=== PATIENT | female | born 1975 | race Caucasian/White ===

== ENCOUNTER 2018-10-25 08:03 | Inpatient (IN) | payer BC ==
[2018-10-25] MEDS ORDERED: OXYTOCIN 30 UNITS/LR 500 ML IV ×2 (09:30)
[2018-10-25] MEDS ORDERED: MISOPROSTOL 200 MCG TAB PR (09:30)
[2018-10-25] MEDS ORDERED: LIDOCAINE 1% (MPF) 30 ML INJ INJ (09:30)
[2018-10-25] MEDS ORDERED: CARBOPROST 250 MCG INJ IM (09:30)
[2018-10-25] MEDS ORDERED: IBUPROFEN 600 MG TAB PO (09:30)
[2018-10-25] MEDS ORDERED: METHYLERGONOVINE 0.2 MG INJ IM (09:30)
[2018-10-25 09:35] LABS: ADD MAN DIFF? NO
[2018-10-25 09:44] LABS: BASOPHIL # 0.1 10^3/ul (0.0-0.1); BASOPHILS % 0.4 % (0.0-2.0); EOSINOPHILS # 0.4 10^3/ul (0.0-0.5); EOSINOPHILS % 3.2 % (0.0-7.0); HEMOGLOBIN 11.9 g/dl (12.0-16.0); LYMPHOCYTES % 17.6 % (15.0-51.0); MEAN CORPUSCULAR HEMOGLOBIN 30.4 pg (29.0-33.0); MEAN CORPUSCULAR HGB CONC 33.1 g/dl (32.0-37.0); MEAN CORPUSCULAR VOLUME 91.8 fl (82.0-101.0); MEAN PLATELET VOLUME 11.9 fl (7.4-10.4); MONOCYTE # 0.7 10^3/ul (0.3-0.9); MONOCYTES % 6.5 % (0.0-11.0); NEUTROPHIL # 7.9 10^3/ul (1.6-7.5); NEUTROPHILS % 70.6 % (39.0-77.0); PLATELET COUNT 243 10^3/UL (140-415); RED BLOOD COUNT 3.92 10^6/ul (4.20-5.40); RED CELL DISTRIBUTION WIDTH 13.5 % (11.5-14.5)
[2018-10-25 09:44] LABS: WHITE BLOOD COUNT 11.2 10^3/ul (4.8-10.8)
[2018-10-25 10:25] LABS: HEPATITIS B SURFACE ANTIGEN NEGATIVE (NEGATIVE)
[2018-10-25 10:54] LABS: INR 0.82; PROTIME 11.4 Sec (11.9-14.9); PT RATIO 0.9
[2018-10-25 10:55] LABS: PARTIAL THROMBOPLASTIN TIME 25.8 Sec (23.0-35.0)
[2018-10-25] MEDS: LACTATED RINGER'S 1,000 ML IV ×3 (11:41→22:34)
[2018-10-25] MEDS: MISOPROSTOL 50 MCG CAPSULE PO ×3 (13:00→21:00)
[2018-10-25] MEDS: MAGNESIUM SULFATE 4 GM/100 ML 100 ML IV (19:30)
[2018-10-25] MEDS: MAGNESIUM SULFATE 20 GM/500 ML 500 ML IV (20:01)
[2018-10-25 20:23] LABS: RAPID PLASMA REAGIN NONREACTIVE (NR)
[2018-10-25 20:29] LABS: ADD MAN DIFF? NO
[2018-10-25 20:34] LABS: BASOPHIL # 0.1 10^3/ul (0.0-0.1); BASOPHILS % 0.6 % (0.0-2.0); EOSINOPHILS # 0.4 10^3/ul (0.0-0.5); EOSINOPHILS % 3.2 % (0.0-7.0); HEMATOCRIT 36.7 % (37.0-47.0); LYMPHOCYTES # 1.9 10^3/ul (0.8-2.9); LYMPHOCYTES % 17.9 % (15.0-51.0); MEAN CORPUSCULAR HGB CONC 32.7 g/dl (32.0-37.0); MEAN CORPUSCULAR VOLUME 91.8 fl (82.0-101.0); MEAN PLATELET VOLUME 11.9 fl (7.4-10.4); MONOCYTE # 0.6 10^3/ul (0.3-0.9); MONOCYTES % 5.8 % (0.0-11.0); NEUTROPHIL # 7.7 10^3/ul (1.6-7.5); NEUTROPHILS % 70.8 % (39.0-77.0); PLATELET COUNT 250 10^3/UL (140-415); RED CELL DISTRIBUTION WIDTH 13.9 % (11.5-14.5)
[2018-10-25 20:34] LABS: WHITE BLOOD COUNT 10.8 10^3/ul (4.8-10.8)
[2018-10-25 20:50] LABS: ALANINE AMINOTRANSFERASE 22 IU/L (13-69); ALBUMIN 3.4 g/dl (3.3-4.9); ALBUMIN/GLOBULIN RATIO 1.06; ALKALINE PHOSPHATASE 176 IU/L (42-121); ANION GAP 10 (5-13); ASPARTATE AMINO TRANSFERASE 20 IU/L (15-46); BILIRUBIN,INDIRECT 0.6 mg/dl (0-1.1); BILIRUBIN,TOTAL 0.6 mg/dl (0.2-1.3); BLOOD UREA NITROGEN 5 mg/dl (7-20); CALCIUM 9.5 mg/dl (8.4-10.2); CARBON DIOXIDE 22 mmol/L (21-31); CHLORIDE 101 mmol/L (97-110); CREATININE 0.42 mg/dl (0.44-1.00); Estimated GFR > 60 mL/min (>60); GLUCOSE 94 mg/dl (70-220); POTASSIUM 3.9 mmol/L (3.5-5.1); SODIUM 133 mmol/L (135-144); TOTAL PROTEIN 6.6 g/dl (6.1-8.1); URIC ACID 4.3 mg/dl (3.1-7.9)
[2018-10-25 20:53] LABS: INR 0.89; PROTIME 12.2 Sec (11.9-14.9)
[2018-10-25 20:54] LABS: PARTIAL THROMBOPLASTIN TIME 25.2 Sec (23.0-35.0)
[2018-10-25] MEDS: OXYTOCIN 30 UNITS/LR 500 ML IV (21:05)
[2018-10-25 21:44] LABS: ADD UMIC YES; UR ASCORBIC ACID NEGATIVE (NEGATIVE); UR BILIRUBIN (Dip) NEGATIVE (NEGATIVE); UR BLOOD (Dip) 1+ mg/dL (NEGATIVE); UR CLARITY CLEAR (CLEAR); UR COLOR YELLOW (YELLOW); UR GLUCOSE (Dip) NEGATIVE (NEGATIVE); UR KETONES (Dip) TRACE mg/dL (NEGATIVE); UR LEUKOCYTE ESTERASE (Dip) NEGATIVE Leu/ul (NEGATIVE); UR NITRITE (Dip) NEGATIVE (NEGATIVE); UR RBC 0 /HPF (0-5); UR SQUAMOUS EPITHELIAL CELL FEW /HPF (FEW); UR TOTAL PROTEIN (Dip) NEGATIVE (NEGATIVE); UR UROBILINOGEN (Dip) NEGATIVE (NEGATIVE); UR WBC 5 /HPF (0-5)
[2018-10-25] MEDS ORDERED: NALOXONE (0.4 MG/ML) INJ IV (23:00)
[2018-10-25] MEDS ORDERED: LABETALOL HCL 20MG INJ (23:38)
[2018-10-25] MEDS: LABETALOL HCL 20MG INJ IV (23:50)
[2018-10-25] MEDS: FENTAnyl 2MCG/ML-ROPIV 0.2% 100 ML BAG EPI (23:55)
[2018-10-26] MEDS ORDERED: LABETALOL HCL 20MG INJ IV ×2
[2018-10-26] MEDS ORDERED: hydrALAzine 20 MG INJ IV
[2018-10-26 01:14] LABS: MAGNESIUM 3.8 mg/dl (1.7-2.5)
[2018-10-26] MEDS: MAGNESIUM SULFATE 20 GM/500 ML 500 ML IV ×2 (04:26→15:07)
[2018-10-26] MEDS: LACTATED RINGER'S 1,000 ML IV (04:27)
[2018-10-26] MEDS: FENTAnyl 2MCG/ML-ROPIV 0.2% 100 ML BAG EPI (04:27)
[2018-10-26] MEDS: OXYTOCIN 30 UNITS/LR 500 ML IV (09:04)
[2018-10-26] MEDS: IBUPROFEN 600 MG TAB PO ×3 (12:00→23:52)
[2018-10-26] MEDS ORDERED: MISOPROSTOL 200 MCG TAB PR (12:00)
[2018-10-26] MEDS ORDERED: DIBUCAINE 1% 30 GM OINT TOP (12:00)
[2018-10-26] MEDS ORDERED: OXYTOCIN 30 UNITS/LR 500 ML IV (12:00)
[2018-10-26] MEDS ORDERED: HYDROCODONE/APAP (5/325) TAB PO (12:00)
[2018-10-26] MEDS ORDERED: ACETAMINOPHEN 325 MG TAB PO (12:00)
[2018-10-26] MEDS ORDERED: CARBOPROST 250 MCG INJ IM (12:00)
[2018-10-26 12:07] LABS: MAGNESIUM 4.1 mg/dl (1.7-2.5)
[2018-10-26] MEDS: WITCH HAZEL/GLYCERIN PAD PR (13:05)
[2018-10-26] MEDS: BENZOCAINE 20% 56 ML SPRAY TOP (13:05)
[2018-10-26] MEDS: LACTATED RINGER'S 1,000 ML IV* (15:56)
[2018-10-26 19:23] LABS: MAGNESIUM 3.7 mg/dl (1.7-2.5)
[2018-10-26] MEDS: SENNA/DOCUSATE NA (8.6MG/50MG) TAB PO (21:07)
[2018-10-27] MEDS: MAGNESIUM SULFATE 20 GM/500 ML 500 ML IV (01:43)
[2018-10-27 01:44] LABS: MAGNESIUM 3.6 mg/dl (1.7-2.5)
[2018-10-27] MEDS: LACTATED RINGER'S 1,000 ML IV* ×2 (03:36→05:08)
[2018-10-27] MEDS: IBUPROFEN 600 MG TAB PO ×4 (05:19→23:37)
[2018-10-27 06:34] LABS: ADD MAN DIFF? NO
[2018-10-27 06:38] LABS: WHITE BLOOD COUNT 13.8 10^3/ul (4.8-10.8)
[2018-10-27 06:38] LABS: BASOPHIL # 0.1 10^3/ul (0.0-0.1); BASOPHILS % 0.4 % (0.0-2.0); EOSINOPHILS # 0.3 10^3/ul (0.0-0.5); HEMATOCRIT 34.9 % (37.0-47.0); HEMOGLOBIN 11.4 g/dl (12.0-16.0); LYMPHOCYTES # 2.3 10^3/ul (0.8-2.9); LYMPHOCYTES % 16.5 % (15.0-51.0); MEAN CORPUSCULAR HEMOGLOBIN 30.8 pg (29.0-33.0); MEAN CORPUSCULAR HGB CONC 32.7 g/dl (32.0-37.0); MEAN CORPUSCULAR VOLUME 94.3 fl (82.0-101.0); MEAN PLATELET VOLUME 11.5 fl (7.4-10.4); MONOCYTE # 0.8 10^3/ul (0.3-0.9); MONOCYTES % 5.6 % (0.0-11.0); NEUTROPHIL # 10.3 10^3/ul (1.6-7.5); NEUTROPHILS % 74.8 % (39.0-77.0); PLATELET COUNT 247 10^3/UL (140-415); RED CELL DISTRIBUTION WIDTH 14.1 % (11.5-14.5)
[2018-10-27 07:02] LABS: MAGNESIUM 3.8 mg/dl (1.7-2.5)
[2018-10-27] MEDS: SENNA/DOCUSATE NA (8.6MG/50MG) TAB PO ×2 (10:07→21:03)
[2018-10-27 12:25] LABS: MAGNESIUM 2.5 mg/dl (1.7-2.5)
[2018-10-28] MEDS: IBUPROFEN 600 MG TAB PO ×2 (05:23→12:14)
[2018-10-28] MEDS: SENNA/DOCUSATE NA (8.6MG/50MG) TAB PO (08:41)
[2018-10-28] MEDS: DIPHTH/TET/ACEL PERTUSS (ADULT) 0.5 ML VIAL IM* (08:42)
[2018-10-28 09:31] LABS: MAGNESIUM 1.4 mg/dl (1.7-2.5)
== END 2018-10-28 18:24 | disposition home or self-care (01) | DRG 807 ==
LOC: L-D 08:03 → PP1 10-26 11:32 → L-D 14:15
PROVIDERS: Obstetrics & Gynecology
PROC: 4A1HXCZ Monitoring of Products of Conception, Cardiac Rate, External Approach (ICD-10-PCS; 2018-10-25 08:00)
PROC: 3E0P7GC Introduction of Other Therapeutic Substance into Female Reproductive, Via Natural or Artificial Opening (ICD-10-PCS; 2018-10-25 08:00)
DX: O13.4 Gestational [pregnancy-induced] hypertension without significant proteinuria, complicating childbirth (principal); Z37.0 Single live birth; O99.214 Obesity complicating childbirth; O48.0 Post-term pregnancy; O70.0 First degree perineal laceration during delivery; Z23 Encounter for immunization; Z3A.40 40 weeks gestation of pregnancy
CPT/HCPCS: 62322; 76815; 80053; 81001; 83735; 84560; 85025; 85610; 85730; 86592; 86850; 86900; 86901; 87340; 90715; 99464